=== PATIENT | male | born 1995 | race Caucasian/White ===

== ENCOUNTER 2018-08-21 18:57 | Emergency (ER) | payer SELFPAY ==
[~2018-08-21] VITALS: Ht 185.4 cm; Wt 77.3 kg
[2018-08-21 19:16] VITALS: BP 125/78; TEMP 99
[2018-08-21 21:09] LABS: COLLECTION METHOD CLEAN CATCH
[2018-08-21 21:21] LABS: MUCOUS Present /lpf; PH 7 (5-8); SQUAMOUS EPITHELIAL None Seen /hpf; URINE APPEARANCE Hazy; URINE BACTERIA Rare /hpf; URINE BILIRUBIN Negative (NEGATIVE); URINE BLOOD Negative (NEGATIVE); URINE COLOR Yellow; URINE GLUCOSE Negative (NEGATIVE); URINE KETONE Negative (NEGATIVE); URINE LEUKOCYTE ESTERASE 2+ (NEGATIVE); URINE NITRATE Negative (NEGATIVE); URINE PROTEIN(semi-quant) 2+ (NEGATIVE); URINE UROBILINOGEN Negative (NEGATIVE); URINE WBC >50 /hpf
[2018-08-21] MEDS ORDERED: BACTRIM DS 8001 TAB PO (21:25)
[2018-08-21 21:36] VITALS: PULSE 78
== END 2018-08-21 21:36 | disposition home or self-care (01) ==
LOC: COL.ER 18:57
PROVIDERS: Nurse Practitioner Primary Care
DX: N34.2 Other urethritis (principal); F12.90 Cannabis use, unspecified, uncomplicated; F17.210 Nicotine dependence, cigarettes, uncomplicated
CPT/HCPCS: J0696

== ENCOUNTER 2019-01-24 08:17 | Inpatient (IN) | payer SELFPAY ==
[~2019-01-24] VITALS: Ht 185.4 cm; Wt 79.7 kg
[~2019-01-24 08:17] MED LIST: BACTRIM DS 8001 TAB PO
[2019-01-24 11:53] VITALS: BP 124/62; PULSE 59; TEMP 98.1
--- NOTE | 2019-01-24 13:22 | NUR ---
Patient admitted to room 346 from ED with sponatenous pneumothorax. Chest tube in place to right chest wall, secured with foam tape. Chest tube to continous wall suction, bubbling noted in chamber, no drainage noted. Right upper and lower lung lobes diminished. Left lower and upper lungs clear. Education provided to patient on chest tube. C/o right shoulder pain. No other c/o at this time.
--- NOTE | 2019-01-24 16:27 | NUR ---
Patient heard yelling in room. Upon entry patient is lying in bed yelling profanities at the bed. When questioned what was wrong, patient states "this bed beeped at me, I'm not going to listen to a beep." Informed patient of appropriate behavior and encouraged him to ask for help rather than becoming irate.
[2019-01-24 16:38] VITALS: BP 109/60; PULSE 50; TEMP 98.5
--- NOTE | 2019-01-24 19:56 | NUR ---
Pt. sitting up in bed at this time. Pt. is A&OX3, assessment complete. INT to lt. forearm patent. Chest tube to rt. chest tube patent, to water seal at 20 of continuous suction. Drainage noted in the tube is pink tinged. No drainage in the canister at this time. Pt. reports pain at a 10 on pain scale. Pt. given pain meds per orders. Pt. denies further needs, call light within reach.
[2019-01-24 21:28] VITALS: BP 119/65; PULSE 53; TEMP 97.9
[2019-01-25 04:56] VITALS: BP 117/60; PULSE 90; TEMP 98.2
[2019-01-25 08:53] VITALS: BP 121/62; PULSE 50; TEMP 97.8
--- NOTE | 2019-01-25 09:45 | NUR ---
Patient heard yelling, upon entering room patient lying in bed yelling profanities. Inquired as to why patient is yelling. Patient states "I want to get out of here, take this tube out and let me go". Educated patient on procedure to remove chest tube and current need to leave in place. Patient continues to yell profanities. Informed patient to use his call light if he needed anything.
--- NOTE | 2019-01-25 10:00 | NUR ---
Dr Garcia notified of patient behaviors and request to discharge. See orders.
--- NOTE | 2019-01-25 10:11 | NUR ---
SHELLIE met with the patient to discuss discharge plan. The patient lives alone in [place] and works at [employer]. He reports independence with ADLs and does not use any DME. The patient does not have a primary care provider and he reports he is not interested in being set up with a PCP or clinic upon discharge. He receives his medications at the [facility] in [place] and he reports that he may have difficulties affording his meds, depending on what the med is. The patient is self pay. SHELLIE attempted to consult financial counselor, Hilda. SHELLIE left a voicemail. The patient plans to return home upon discharge. No other identified needs at this time, but SW to continue to follow.
--- NOTE | 2019-01-25 10:34 | NUR ---
Chest tube to water seal.
[2019-01-25 10:42] VITALS: BP 131/62; PULSE 63; TEMP 97.6
--- NOTE | 2019-01-25 10:45 | NUR ---
Patient continues yelling profanties with no needs expressed.
--- NOTE | 2019-01-25 11:25 | NUR ---
Patient resting in bed with OTHER SPORTS OFFICIAL at bedside completing cares upon assessment. Denies needs. Wanting to go home. Chest tube to suction. Clamps and gauze at bedside.
--- NOTE | 2019-01-25 16:33 | NUR ---
Patient refused Nicotene patch. Patient denies any further needs. Chest tube continues to suction. Currently watching television.
[2019-01-25 16:55] VITALS: BP 135/70; PULSE 86; TEMP 98.2
--- NOTE | 2019-01-25 18:55 | NUR ---
Patient sitting in bed with dinner in front of him. Visitors at bedside. Denies needs. Will report off to cage shift manager nurse.
--- NOTE | 2019-01-25 19:34 | NUR ---
Report received from JAYNE Yu
[2019-01-25 20:00] VITALS: BP 152/84; PULSE 70; TEMP 98.1
--- NOTE | 2019-01-25 20:45 | NUR ---
Resting in bed. Assessment complete. Right upper lobe diminished. Otherwise clear. Heart sounds normal. Bowels active x4. Pulses strong throughout. Denies any pain or discomfort with chest tube. Chest tube without complications, tidaling. Verified by JAYNE Pan. Denies needs at this time. Denies pain. Visitors at bedside. Call light in reach.
--- NOTE | 2019-01-25 23:58 | NUR ---
Patient resting in bed. Denies needs. Denies pain. Chest tube to suction without complications. Call light in reach.
[2019-01-26] VITALS: BP 121/68; PULSE 45; TEMP 98.1
--- NOTE | 2019-01-26 02:17 | NUR ---
Resting in bed. Chest tube to suction with tidaling in suction chamber. Denies needs. Call light in reach.
[2019-01-26 04:00] VITALS: BP 118/61; PULSE 75; TEMP 98.5
--- NOTE | 2019-01-26 06:33 | NUR ---
Resting in bed. Had uneventful night. Chest tube to suction without complications. Drainage amount recorded. Denied needs this AM. Provided with warm blanket. Call light in reach.
--- NOTE | 2019-01-26 07:03 | NUR ---
Report given to Cinthia GODOY
[2019-01-26 08:31] VITALS: BP 119/73; PULSE 50; TEMP 98.1
[2019-01-26 11:06] VITALS: BP 134/66; PULSE 64; TEMP 97.7
[2019-01-26 17:08] VITALS: BP 130/66; PULSE 58; TEMP 97.6
[2019-01-26 20:47] VITALS: BP 134/75; PULSE 69; TEMP 98.3
--- NOTE | 2019-01-26 21:49 | NUR ---
PT IN BED WITH HOB ELEVATED TO 45 DEGREE ANGLE, DENIES PAIN OR DISCOMFORT AT THIS TIME AND NO NEEDS, CALL LIGHT WITHIN REACH.
[2019-01-27 00:33] VITALS: BP 120/64; PULSE 79; TEMP 98.1
--- NOTE | 2019-01-27 01:46 | NUR ---
PT HAS BEEN IN BED RESTING/SLEEPING, WITH NO C/O PAIN OR DISCOMFORT. CHEST TUBE STILL IN PLACE. PT FEELS LIKE IT IS LEAKING, BUT CANISTER STILL BUBBLING AND LUNG SOUNDS TO LEFT SIDE. PT HAS BEEN PLEASANT AND COOPERATIVE. ADVISED PT THAT WE DO HAVE SANDWICH BOXES AND ALSO HE CAN ORDER FROM [employer] IN THE AREA AND THEY WILL DELIVER. NO NEEDS AT THIS TIME. CALL LIGHT WITHIN REACH.
--- NOTE | 2019-01-27 04:36 | NUR ---
PT IN BED WITH HOB ELEVATED TO 30 DEGREE ANGLE. PT DENIES PAIN OR DISCOMFORT AT THIS TIME. ASSESSED RIGHT CHEST AREA, LS IN RIGHT UP CHEST IS CLEAR. TUBE ON RIGHT CHEST IS STILL IN PLACE AND DRSG CLEAN, DRY, AND INTACT. ALSO, CONTINUOUS SUCTION IS STILL WORKING FINE. PT HAS NO NEEDS AT THIS TIME, AND CALL LIGHT WITHIN REACH.
[2019-01-27 04:57] VITALS: BP 135/81; PULSE 52; TEMP 98.3
--- NOTE | 2019-01-27 05:49 | NUR ---
PT CALLED TO ADVISED THAT WHEN HE TURNED IN BED THE CHEST TUBE GOT DISCONNECTED. RECONNECTED TUBING TO SUCTION, AND ASSESSED PT. STILL HAS CLEAR LUNGS ON RIGHT UPPER CHEST AND SKIN ON RIGHT CHEST FIRM AND SMOOTH. PT WAS UPSET AND STARTED TO CRY BECAUSE IT FRIGHTENED HIM. CANISTER IS BUBBLING AND NO PROBLEMS FROM COMING DISCONNECTED NOTED. CALL LIGHT WITHIN REACH.
[2019-01-27 09:00] VITALS: BP 136/71; PULSE 51; TEMP 97.8
[2019-01-27 13:29] VITALS: BP 123/61; PULSE 63; TEMP 98
[2019-01-27 15:53] VITALS: BP 116/76; PULSE 67; TEMP 98.2
[2019-01-27 19:42] VITALS: BP 121/77; PULSE 70; TEMP 97.9
--- NOTE | 2019-01-27 20:00 | NUR ---
PT IN BED WITH HOB AT 45 DEGREE ANGLE. PT IS WATCHING TV AND DENIES PAIN OR DISCOMFORT AT THIS TIME. PT WAS EXPLAINED THAT AFTER MIDNIGHT NO SOLID FOODS AND CAN HAVE LIQUIDS TILL 0800. PT IS AWARE THAT HE IS GOING TO SURGERY TOMORROW. PT HAS BEEN PLEASANT AND COOPERATIVE. PT ADVISED THAT HE IS NERVOUS AND ALSO RELIEVED THAT HE WILL BE GETTING IT DONE AND OVER WITH. PT HAS NO FURTHER NEEDS CALL LIGHT WITHIN REACH.
--- NOTE | 2019-01-27 23:40 | NUR ---
PT AWAKE IN BED WITH HOB ELEVATED TO 45 DEGREE ANGLE. CHEST TUBE ATTACHED TO SUCTION AND WORKING WITHOUT ANY PROBLEMS. PT WAS GIVEN INFORMATION ABOUT THE VATS AND ALSO PT SIGNED CONSENT FORM FOR SURGERY.
[2019-01-28] VITALS (13 sets, daily range): BP systolic 109–132; BP diastolic 58–76; PULSE 53–74; TEMP 97–98.5
--- NOTE | 2019-01-28 12:45 | NUR ---
Patient is going to surgery at this time. Consent signed and on the chart. Pre-ops given.
--- NOTE | 2019-01-28 15:30 | NUR ---
Patient is back from surgery. His father is at bedside. He stated having some pain to his right side of the chest, rating it at 3 on a 0-10 scale. Chest tube placed to 20cm of suction. Patient denies nausea. No other changes at this time. Call light within reach.
--- NOTE | 2019-01-28 18:36 | NUR ---
Patient upright eating in bed. Dad visited earlier today. call light within reach. Reported off to nurse JAYNE Sutton.
--- NOTE | 2019-01-28 19:00 | NUR ---
Patient is resting comfortably at this time. He has not had any more drainage since surgery. Denies nausea or pain at this time. Chest tube remains to suction. No other changes at this time. Call light within reach.
--- NOTE | 2019-01-28 21:25 | NUR ---
Pt in bed watching TV, some C/O discomfort at chest tube insertion site, shift assessment complete, left Pt call light in reach, bed in lowest position.
[2019-01-29] VITALS (7 sets, daily range): BP systolic 116–137; BP diastolic 53–67; PULSE 50–72; TEMP 96.9–98.4
--- NOTE | 2019-01-29 05:11 | NUR ---
Pt did not sleep well during the night, he did have some C/O pain throught the night, prescribed toladol has been relieving the pain adequately, VS ahev remained stable and the chest tube is not producing and liquid drainage, chest tube remains on 20 cm suction and Pt continues on 1.5 L O2.
[2019-01-29 07:36] LABS: HEMATOCRIT 43.5 % (42.0-52.0); HEMOGLOBIN 14.8 g/dl (13.5-18.0)
[2019-01-29 07:48] LABS: CALCIUM 9.5 mg/dL (8.4-10.2); CREATININE, serum 1.06 (0.66-1.25); POTASSIUM 4.5 mmol/L (3.4-5.0)
--- NOTE | 2019-01-29 08:00 | NUR ---
PATIENT IS SITTING UP ON THE EDGE OF THE BED THIS MORNING. PATIENT IS A&O. VSS. SHALLOW BREATHING NOTED. PATIENT STATES THAT HE HAS A PRODUCTIVE COUGH WITH PALE YELLOW, BLOOD-TINGED SPUTUM. PATIENT DENIES SOB. 02 AT 2L NASAL CANNULA. BOWEL SOUNDS ACTIVE ALL FOUR QUADRANTS. PATIENT TOLERATING DIET WITHOUT COMPLAINTS OF N/V. RIGHT-SIDED CHEST TUBE TO 20 CM SUCTION WATERSEAL WITH BLOODY DRAINAGE PRESENT IN CANISTER. RIGHT CHEST TUBE DRESSING CD&I. 3 INCISIONS TO RIGHT CHEST DRESSED WITH BANDAIDS AND ARE CD&I. POSITIVE PEDAL PULSES EQUAL BILATERALLY. SCD'S TO BLE. INT TO LEFT FOREARM. CALL LIGHT WITHIN REACH. PATIENT DENIES ANY OTHER NEEDS AT THIS TIME.
--- NOTE | 2019-01-29 19:00 | NUR ---
REPORT GIVEN TO JAYNE FERNANDEZ.
--- NOTE | 2019-01-30 | NUR ---
PT CALLED THIS NURSE TO LOOK AT CHEST TUBE, STATED THAT IT WANST MAKING THE BUBBLING NOISE IT AHD BEFORE. THIS NURSE MESSED WITH THE TUBING AND IT STARTED TO BUBBLE IN THE SUCTION CHAMBER IT HAD BEFORE.
--- NOTE | 2019-01-30 01:00 | NUR ---
PT CALLED THIS NURSE BACK INTO ROOM. STATED THAT IT WAS NO LONGER BUBBLING AGAIN. THIS NURSE CHANGED OUT THE SUCTION TUBING AND THE THE REGUATOR ON THE WALL TO ENSURE THAT THOSE WHERE WORKING PROPERLY. THIS NURSE CALLED THE CHARGE NURSE CHRIS IN TO LOOK AT THE CHEST TUBE. WE WERE UNABLE TO GET IT TO SEEM TO GET IT TO WORK RIGHT, NO NOTED BUBBLING IN THE SUCTION CHAMBER. CALLED LINDA NUNEZTECHNICAL BUYER TO COME ASSIST. SHE WAS ABLE TO GET IT TO WORK AT THIS TIME BY MOVING THE RICHARDS PORT COVER ON THE SUCTION CHAMBER.
--- NOTE | 2019-01-30 02:00 | NUR ---
THIS NURSE CAME BACK TO REASSESS PT CHEST TUBE TO MAKE SURE IT WAS STILL WORKING. NO NOTED BUBBLING IN THE SUCTION CHAMBER. THIS NURSE AND LINDA GODOY, CLAMPED OFF THE TUBING AND CHANGED OUT THE CHEST TUBE CONTAINER. CHEST TUBE HAD NOTED BUBBLING IN THE SUCTION CHAMBER AFTERWARDS.
[2019-01-30 03:44] VITALS: BP 116/63; PULSE 78; TEMP 97.7
--- NOTE | 2019-01-30 05:22 | NUR ---
CHEST TUBE HAS SOME NOTED DRAINAGE IN TUBING. SUCTION AND WATER SEAL REMAIN AT ORDERED LEVEL AND HAS NOTED BUBBLING IN SUCTION CHAMBER. PT HAS C/O BACK PAIN AT TIMES AND HAS NEEDED PRN DILADID IN BETWEEN DOSES TO SCHEDULED TORADAL. PT VOICES THAT HES HOPEFULL THAT CHEST TUBE MAY COME OUT TODAY AND THAT HE MIGHT BE ABLE TO GO HOME. DRESSINGS REMAIN CLEAN DRY AND INTACT. NO OTHER ISSUES OR CONSERNS VOICED AT THIS TIME
--- NOTE | 2019-01-30 06:38 | NUR ---
PT HAD SCORED ON DETOX PROTOCOL ALL BUT ONE TIME THIS SHIFT. RECIEVED ATIVAN PER PROTOCOL AND STILL HAD C/O PAIN AND NAUSEA AND RECIEVED MEDICATION REQUESTED.
[2019-01-30 08:00] VITALS: BP 112/59; PULSE 47; TEMP 97.7
[2019-01-30 12:00] VITALS: BP 111/53; PULSE 83; TEMP 97.5
--- NOTE | 2019-01-30 14:33 | NUR ---
PATIENT'S RIGHT CHEST TUBE TO WATERSEAL AND DISCONNECTED FROM SUCTION PER DR. SANTOS.
[2019-01-30 16:00] VITALS: BP 131/72; PULSE 71; TEMP 97.8
--- NOTE | 2019-01-30 17:00 | NUR ---
PT'S IV TO LEFT WRIST 6 DAYS OLD. NEW 20G IV INSERTED TO LEFT INNER FOREARM. PT TOLERATED WELL.
--- NOTE | 2019-01-30 19:00 | NUR ---
END OF SHIFT NOTE. SEE ASSESSMENT. PATIENT A&OX4. BRADYCARDIA NOTED, OTHERWISE VSS. SHALLOW BREATHING NOTED. PATIENT DENIES SOB OR A PRODUCTIVE COUGH. CHEST TUBE DRESSED WITH GAUZE AND HYPAFIX AND IS CD&I. INCISION SITES X3 COVERED WITH BANDAIDS AND ARE CD&I. INT TO LEFT FOREARM. PATIENT PAIN CONTROLLED WITH TORADOL. PATIENT VOIDING PER URINAL. REPORT GIVEN TO JAYNE PEREZ.
[2019-01-30 20:06] VITALS: BP 119/60; PULSE 61; TEMP 98.2
[2019-01-30 23:58] VITALS: BP 119/69; PULSE 75; TEMP 97.8; TEMP 98.5
[2019-01-31] VITALS (7 sets, daily range): BP systolic 115–142; BP diastolic 58–88; PULSE 48–120; TEMP 97.8–98.9
--- NOTE | 2019-01-31 09:00 | NUR ---
Patient alert and oriented, answers questions appropriately. See assessment. Chest tube to right chest wall to water seal, no drainage noted at site, gauze in place. Lungs CTA. Encouraged IS. No c/o at this time.
--- NOTE | 2019-01-31 14:15 | NUR ---
resting in bed, denies needs
--- NOTE | 2019-01-31 14:40 | NUR ---
Dr Garcia in and chest tube discontinued, patient tolerated well, site dressed by Dr Garcia
--- NOTE | 2019-01-31 19:15 | NUR ---
Report received from Cinthia GODOY. Patient alert and oriented x 4. Denies pain at this time. Ambulates out to [facility] hospital area with friend.
--- NOTE | 2019-01-31 20:45 | NUR ---
Patient back in room. Declined nicoderm patch today and states will decline toradol. Reports right previous chest tube site achy and norco 1 tab reviewed and given. See assessment. Lung sounds CTA. Denies shortness of breath or dizziness at this time.
--- NOTE | 2019-01-31 21:00 | NUR ---
INT LAC flushed with 5mls NS without problems.
--- NOTE | 2019-01-31 23:00 | NUR ---
Patient rests in bed with eyes closed. Savoy box and milk given earlier for snack.
--- NOTE | 2019-02-01 01:52 | NUR ---
Patient rests quietly in bed on left side. Respirations with ease.
[2019-02-01 04:35] VITALS: BP 104/43; PULSE 72; TEMP 98.4
--- NOTE | 2019-02-01 04:45 | NUR ---
PATIENT AWAKENED FOR VITALS. REPORTS PAIN 6/10 AND NORCO GIVEN. STATES DID GET "A LITTLE BIT" OF SLEEP THIS NOC. ENCOURAGED TO CALL FOR NEEDS.
--- NOTE | 2019-02-01 06:13 | NUR ---
Patient rests in bed. Previous chest tube site dressing right chest CDI. Patient reports pain ok at this time following pain med 01/02.
--- NOTE | 2019-02-01 08:00 | NUR ---
Patient up ambulating in room, Alert and oriented x3. Shift assessment complete. Denies pain this AM. Dressing to right chest is CDI. Denies further needs at this morning. Patient states that he will be discharging today and would like to leave as soon as possible.
[2019-02-01 08:57] VITALS: BP 139/85; PULSE 78; TEMP 97.6
--- NOTE | 2019-02-01 09:44 | NUR ---
SHELLIE followed up with patient this morning about no PCP and possible med assistance. Patient continues to decline getting set up with a PCP and he reports he will likley not need any medications when he is discharged and he does not want to take any pain medications once he is discharged. No discharge needs at this time.
[2019-02-01 11:32] VITALS: BP 121/65; PULSE 74; TEMP 98.1
--- NOTE | 2019-02-01 13:45 | NUR ---
Discharge instructions provided to patient. Patient educated on signs and symptoms of infection. Educated on when to call provider and weight lifting restrictions. Patient educated on importance of keeping follow up appointment. Patient verbalized understanding, all questions answered. INT to left AC discontinued, catheter tip intact. Tolerated procedure well. Denies further needs, waiting for his ride. Will call out to nurses station when he is ready to leave.
--- NOTE | 2019-02-01 13:50 | NUR ---
Patient ambulated out with surgical staff.
== END 2019-02-01 14:00 | disposition home or self-care (01) | DRG 165 ==
LOC: COL.ER 08:17 → SURG 10:33
PROVIDERS: ADMIT Surgery
PROC: 0W9930Z Drainage of Right Pleural Cavity with Drainage Device, Percutaneous Approach (ICD-10-PCS; 2019-01-24)
PROC: 0BCK4ZZ Extirpation of Matter from Right Lung, Percutaneous Endoscopic Approach (ICD-10-PCS; 2019-01-28)
PROC: 0B5N4ZZ Destruction of Right Pleura, Percutaneous Endoscopic Approach (ICD-10-PCS; principal; 2019-01-28 12:00)
DX: J93.11 Primary spontaneous pneumothorax (principal); F17.210 Nicotine dependence, cigarettes, uncomplicated; J93.82 Other air leak; J43.0 Unilateral pulmonary emphysema [MacLeod's syndrome]
CPT/HCPCS: OP; A7041; A9284; G0378; J0690; J1100; J1170; J1650; J1885; J2060; J2250; J2405; J2704; J3010; J7120

== ENCOUNTER 2019-07-04 13:34 | Emergency (ER) | payer SELFPAY ==
[~2019-07-04] VITALS: Ht 185.4 cm; Wt 72.7 kg
[2019-07-04 13:49] VITALS: BP 119/59; PULSE 67; TEMP 98.1
[2019-07-04 16:49] LABS: COLLECTION METHOD CLEAN CATCH
[2019-07-04 17:40] LABS: MUCOUS Present /lpf; PH 5 (5-8); SQUAMOUS EPITHELIAL 0-2 /hpf; URINE APPEARANCE Clear; URINE BACTERIA None Seen /hpf; URINE BILIRUBIN Negative (NEGATIVE); URINE BLOOD Negative (NEGATIVE); URINE COLOR Yellow; URINE GLUCOSE Negative (NEGATIVE); URINE KETONE Negative (NEGATIVE); URINE LEUKOCYTE ESTERASE Negative (NEGATIVE); URINE NITRATE Negative (NEGATIVE); URINE PROTEIN(semi-quant) Negative (NEGATIVE); URINE RBC 0-2 /hpf; URINE UROBILINOGEN Negative (NEGATIVE)
[2019-07-05] MEDS ORDERED: ZITHROMAX500 M2 PO (07:00)
== END 2019-07-04 18:23 | disposition home or self-care (01) ==
LOC: COL.ER 13:34
PROVIDERS: Emergency Medicine
DX: N50.819 Testicular pain, unspecified (principal)

== ENCOUNTER 2022-12-07 09:00 | Emergency (ER) | payer SELFPAY ==
[~2022-12-07] VITALS: Ht 185.4 cm; Wt 77.3 kg
[~2022-12-07 09:00] MED LIST changes: +ZITHROMAX500 M2 PO
[2022-12-07 09:05] VITALS: BP 123/76; TEMP 97.4
[2022-12-07 09:41] LABS: COLLECTION METHOD CLEAN CATCH
[2022-12-07 09:45] LABS: PH 5.5 (5.0-8.5); URINE APPEARANCE Clear (CLEAR/HAZY); URINE BLOOD Negative (NEGATIVE); URINE COLOR Yellow (YELLOW); URINE GLUCOSE Negative (NEGATIVE); URINE KETONE Negative (NEGATIVE); URINE NITRATE Negative (NEGATIVE); URINE PROTEIN(semi-quant) Negative (NEGATIVE); URINE UROBILINOGEN 0.2 E.U/dL (0.2-1.0)
[2022-12-07 09:47] LABS: MUCOUS Present (NOT PRESENT); SQUAMOUS EPITHELIAL None Seen /hpf (0-10); URINE BACTERIA None Seen /hpf (NONE SEEN); URINE RBC 0-2 /hpf (0-2)
[2022-12-07] MEDS ORDERED: DOXYCYCLINE 10100 MG PO (09:55)
[2022-12-07 10:36] VITALS: PULSE 85
[2022-12-07 11:09] LABS: HIV 1/2 Antibodies Non-Reactive; HIV-1p24 Antigen Non-Reactive
== END 2022-12-07 10:36 | disposition home or self-care (01) ==
LOC: COL.ER 09:00
PROVIDERS: Emergency Medicine
DX: R30.0 Dysuria (principal); Z28.310 Unvaccinated for COVID-19
CPT/HCPCS: J0696

== ENCOUNTER 2022-12-27 12:46 | Emergency (ER) | payer SELFPAY ==
[~2022-12-27] VITALS: Ht 185.4 cm; Wt 77.3 kg
[~2022-12-27 12:46] MED LIST changes: +DOXYCYCLINE 10100 MG PO
[2022-12-27 14:58] LABS: COLLECTION METHOD CLEAN CATCH
[2022-12-27 15:22] LABS: MUCOUS Present (NOT PRESENT); SQUAMOUS EPITHELIAL None Seen /hpf (0-10); URINE BACTERIA None Seen /hpf (NONE SEEN); URINE RBC None Seen /hpf (0-2)
[2022-12-27 15:40] LABS: PH 5.5 (5-8); URINE APPEARANCE Clear (CLEAR/HAZY); URINE BLOOD Negative (NEGATIVE); URINE COLOR Yellow (YELLOW); URINE GLUCOSE Negative (NEGATIVE); URINE KETONE Negative (NEGATIVE); URINE NITRATE Negative (NEGATIVE); URINE PROTEIN(semi-quant) Negative (NEGATIVE); URINE UROBILINOGEN 0.2 (NEGATIVE)
[2022-12-27 16:18] VITALS: BP 117/81; PULSE 51; TEMP 97.7
== END 2022-12-27 16:19 | disposition home or self-care (01) ==
LOC: COL.ER 12:46
PROVIDERS: Nurse Practitioner
DX: R30.0 Dysuria (principal); Z28.310 Unvaccinated for COVID-19